=== PATIENT | male | born 1950 ===

== ENCOUNTER 2025-02-21 13:15 | Emergency (ER) | payer MEDICARE ==
[~2025-02-21 13:15] MED LIST: Iopamidol-370 76% 500 ML MDV (1 ML CHARGE) ONE
[2025-02-21] MEDS ORDERED: Boostrix 0.5 ML (Tdap) VIAL (>/=7 yrs of age) ONE (13:25)
[2025-02-21] MEDS ORDERED: CEFAZOLIN 2 GM VIAL ONE (13:25)
[2025-02-21 13:37] LABS: #Basophils 0.07 10x3/uL (0.0-0.2); #Eosinophils 0.09 10x3/uL (0.0-0.7); #Monocytes 0.65 10x3/uL (0.11-0.59); #Neutrophils 8.30 10x3/uL (1.40-6.50); %Basophils 0.7 % (0.0-1.0); %Eosinophils 0.9 % (0.0-10.0); %Lymphocytes 12.9 % (21.0-51.0); %Monocytes 6.2 % (0.0-10.0); %Neutrophils 78.9 % (42.0-75.0); Hematocrit 39.2 % (42.0-52.0); Hemoglobin 13.0 g/dL (14.0-18.0); Mean Corpuscular Hemoglobin 30.5 pg (27.0-31.0); Mean Corpuscular Volume 92.0 fL (78.0-98.0); Platelet Count 182 10x3/uL (130-400); Red Blood Cell (RBC) Count 4.26 mill/uL (4.70-6.10); White Blood Cell (WBC) Count 10.50 10x3/uL (4.8-10.8)
[2025-02-21 13:56] LABS: ALT (SGPT) 21 U/L (Less than 45); AST (SGOT) 24 U/L (11-34); Albumin 4.2 g/dL (3.1-4.5); Alkaline Phosphatase 86 U/L (40-110); Anion Gap 17 mmol/L (10-20); BUN (Urea Nitrogen) 32 mg/dL (8.4-25.7); Bilirubin, Total 0.3 mg/dL (0.3-1.2); Calc. Creatinine Clearance 0 mL/min (70-130); Calcium 8.9 mg/dL (7.8-10.44); Carbon Dioxide 25 mmol/L (23-31); Chloride 104 mmol/L (98-107); Globulin 2.8 g/dL (2.4-3.5); Glucose 169 mg/dL (83-110); Potassium 3.6 mmol/L (3.5-5.1); Sodium 142 mmol/L (136-145)
[2025-02-21 13:57] LABS: Acetaminophen Less than 10 mcg/mL (Less than 10); Salicylate Less than 8.0 mg/dL (Less than 8.0)
[2025-02-21 14:03] LABS: PTT 22.9 sec (22.9-36.1)
[2025-02-21 14:04] LABS: INR-International Normal Ratio 0.9; Prothrombin Time 12.1 sec (12.0-14.7)
[2025-02-21] MEDS ORDERED: niCARdipine 25 MG/10 ML SDV ONE (14:47)
[2025-02-21] MEDS ORDERED: levETIRAcetam 500 MG (5 mL) VIAL ONE (14:51)
[2025-02-21] MEDS ORDERED: Ondansetron PF 4 MG/2 ML Vial ONE (14:52)
[2025-02-21] MEDS ORDERED: Rocuronium Bromide 10 MG/ML (10ML VIAL) ONE (15:00)
[2025-02-21] MEDS ORDERED: Etomidate 40 MG (20 mL) VIAL ONE (15:00)
[2025-02-21 15:32] LABS: Actual Bicarbonate (HCO3a) 25.2 mEq/L (22-28); Analyzer IN Cardio ER; Base Excess (BEa) 0.4 mEq/L (-2.0 to +3.0); CO2 Tension 41.3 mmHg (35.0-45.0); Calcium, Ionized (arterial) 1.11 mmol/L (1.12-1.30); Hematocrit-ABG 40 % (42.0-52.0); Hemoglobin (Hb) 13.7 g/dL (14.0-18.0); O2 Tension (PaO2), arterial 318.6 mmHg (> 70.0); Potassium - ABG Lab 3.26 mmol/L (3.70-5.30); pH, Arterial 7.403 (7.35-7.45)
[2025-02-21 15:33] LABS: ALV-art Gradient 342.775 mmHg (0-20); Puncture Site Right Radial artery
== END 2025-02-21 17:16 | disposition short-term general hospital (02) ==
LOC: ERS 13:15
DX: S06.6XAA Traumatic subarachnoid hemorrhage with loss of consciousness status unknown, initial encounter (principal); S06.5XAA Traumatic subdural hemorrhage with loss of consciousness status unknown, initial encounter; S02.19XA Other fracture of base of skull, initial encounter for closed fracture; Z23 Encounter for immunization; W11.XXXA Fall on and from ladder, initial encounter
CPT/HCPCS: 31500; 36600; 70450; 70480; 71045; 71260; 72125; 74177; 80053; 80307; 82805; 83605; 85025; 85610; 85730; 90471; 90715; 96365 ×2; 96366; 96367; 96375; 99291; G0390; J0295; J1953; J2405; J2704; J3010; Q9967; 36415; 94002